=== PATIENT | male | born 1995 | race Caucasian/White ===

== ENCOUNTER 2017-05-07 19:30 | Emergency (ER) | payer OTHER ==
[~2017-05-07] VITALS: Ht 167.6 cm; Wt 72.1 kg
[2017-05-07 20:54] VITALS: Ht 167.6 cm; Wt 72.1 kg
[2017-05-08 01:21] VITALS: BP 129/80
== END 2017-05-08 01:21 | disposition home or self-care (01) ==
LOC: ED 19:30
DX: S43.402A Unspecified sprain of left shoulder joint, initial encounter (principal); V49.9XXA Car occupant (driver) (passenger) injured in unspecified traffic accident, initial encounter; Y93.89 Activity, other specified; Y92.89 Other specified places as the place of occurrence of the external cause; Y99.8 Other external cause status
CPT/HCPCS: Q0092

== ENCOUNTER 2018-06-13 00:50 | Emergency (ER) | payer OTHER ==
[~2018-06-13] VITALS: Ht 170.2 cm; Wt 77.1 kg
[2018-06-13 00:57] VITALS: BP 131/85; Ht 170.2 cm; Wt 77.1 kg
== END 2018-06-13 01:16 | disposition other institution (70) ==
LOC: ED 00:50
DX: Z02.89 Encounter for other administrative examinations (principal)